=== PATIENT | male | born 2000 | race African-American/Black ===

== ENCOUNTER 2023-04-19 19:15 | Emergency (ER) | payer MEDICAID ==
[~2023-04-19] VITALS: Ht 172.7 cm; Wt 85.0 kg
[2023-04-19] MEDS ORDERED: ACETAMINOPHEN 325MG TABLET PO ONE (20:15)
[2023-04-19] MEDS ORDERED: ACET-2708 MT (20:43)
[2023-04-19 20:55] VITALS: BP 138/82
== END 2023-04-19 20:56 | disposition home or self-care (01) ==
LOC: ER 19:15
DX: R51.9 Headache, unspecified (principal); V49.59XA Passenger injured in collision with other motor vehicles in traffic accident, initial encounter; Y93.89 Activity, other specified; Y92.89 Other specified places as the place of occurrence of the external cause; Y99.8 Other external cause status
CPT/HCPCS: 99282